=== PATIENT | female | born 1945 | race Caucasian/White ===

== ENCOUNTER 2021-10-04 14:12 | Emergency (ER) | payer OTHER ==
[~2021-10-04] VITALS: Ht 170.2 cm; Wt 99.8 kg
[2021-10-04] MEDS ORDERED: ARMOUR THYROID15 MG (15:29)
[2021-10-04] MEDS ORDERED: HYDROXYCHLOROQ200 MG (15:29)
[2021-10-04] MEDS ORDERED: MACRODANTIN100 M1 PO (20:13)
[2021-10-04] MEDS ORDERED: TAMS0.4C PO (20:13)
== END 2021-10-04 21:52 | disposition home or self-care (01) ==
LOC: ER 14:12
DX: N13.6 Pyonephrosis (principal); N39.0 Urinary tract infection, site not specified; Z88.0 Allergy status to penicillin; E88.2 Lipomatosis, not elsewhere classified; Z85.820 Personal history of malignant melanoma of skin; K57.30 Diverticulosis of large intestine without perforation or abscess without bleeding; N10 Acute pyelonephritis; N20.0 Calculus of kidney